=== PATIENT | female | born 1945 | race Caucasian/White ===

== ENCOUNTER 2019-09-08 21:44 | Emergency (ER) | payer BC, MEDICARE, OTHER ==
[~2019-09-08] VITALS: Ht 167.6 cm; Wt 65.8 kg
--- NOTE | 2019-09-08 22:32 | NUR ---
BP 159/79MMHG Patient discharged to home in stable conditon. Written and verbal after care instructions given. Patient verbalizes understanding of instructions. AMBULATORY W/ STABLE GAIT ALL BELONGINGS W/ PT
[2019-09-08 22:36] VITALS: BP 159/79
== END 2019-09-08 22:36 | disposition home or self-care (01) ==
LOC: ER 21:48
DX: I10 Essential (primary) hypertension (principal); Z79.899 Other long term (current) drug therapy; Z96.642 Presence of left artificial hip joint
CPT/HCPCS: A4663

== ENCOUNTER 2021-07-07 09:25 | Emergency (ER) | payer BC ==
[~2021-07-07] VITALS: Ht 167.6 cm; Wt 63.5 kg
[~2021-07-07 09:25] MED LIST: AMLO5TAB4 PO; LISI40TA13 PO; PROP60TA18 PO
[2021-07-07 09:39] LABS: *BILIRUBIN,URIN NEGATIVE (NEGATIVE); *BLOOD, URINE NEGATIVE (NEGATIVE); *CLARITY,URINE CLEAR (CLEAR); *COLOR,URINE YELLOW (YELLOW); *KETONES,URINE NEGATIVE (NEGATIVE); *UROBILINOGEN,URINE 0.2 E.U./dl (NORMAL); LEUKOCYTE ESTERASE ,URINE NEGATIVE (NEGATIVE); NITRITE, URINE NEGATIVE (NEGATIVE); UGLUCOSE NEGATIVE (NEGATIVE)
[2021-07-07 10:21] LABS: HEMATOCRIT 35.6 % (31.2-41.9); MEAN CORPUSCULAR HEMOGLOBIN 32.3 uug (24.7-32.8); MEAN CORPUSCULAR VOLUME 95.2 fL (75.5-95.3); PLATELET COUNT (AUTO) 209 K/uL (179-408)
[2021-07-07 10:27] LABS: CARBON DIOXIDE 27 mmol/L (21-32); CHLORIDE 98 mmol/L (98-107); CREATININE 1.7 mg/dL (0.6-1.3); GLUCOSE 110 mg/dL (74-106); POTASSIUM 4.8 mmol/L (3.5-5.1); UREA NITROGEN, BLOOD 27 mg/dL (7-18)
--- NOTE | 2021-07-07 10:51 | NUR ---
Gave pt d/c instructions, pt verbalized understanding.
== END 2021-07-07 10:52 | disposition home or self-care (01) ==
LOC: ER 09:25
DX: R39.15 Urgency of urination (principal); Z96.642 Presence of left artificial hip joint; Z96.652 Presence of left artificial knee joint; Z79.899 Other long term (current) drug therapy; R03.0 Elevated blood-pressure reading, without diagnosis of hypertension
CPT/HCPCS: 36415; 85025; 87086; A4663

== ENCOUNTER 2022-10-12 23:31 | Emergency (ER) | payer BC ==
[~2022-10-12] VITALS: Ht 167.6 cm; Wt 63.5 kg
--- NOTE | 2022-10-12 23:40 | NUR ---
Dr. Mcgee at bedside for MSE.
--- NOTE | 2022-10-12 23:57 | NUR ---
Xray at bedside.
[2022-10-13] LABS: HEMATOCRIT 35.9 % (31.2-41.9); MEAN CORPUSCULAR HEMOGLOBIN 31.4 uug (24.7-32.8); MEAN CORPUSCULAR VOLUME 94.3 fL (75.5-95.3); PLATELET COUNT (AUTO) 175 K/uL (179-408)
[2022-10-13] MEDS ORDERED: AZIT250T PO (00:11)
[2022-10-13] MEDS ORDERED: ALBU8.5H8 IH (00:11)
[2022-10-13 00:14] LABS: CREATININE 1.1 mg/dL (0.6-1.3)
[2022-10-13 00:19] LABS: BILIRUBIN,TOTAL 0.3 mg/dL (0.2-1.0); TOTAL PROTEIN, SERUM 6.7 g/dL (6.4-8.2)
[2022-10-13 00:59] VITALS: BP 158/80
--- NOTE | 2022-10-13 00:59 | NUR ---
Patient discharged to home in stable condition. Written and verbal after care instructions given. Patient verbalizes understanding of instructions. Stressed follow up or return to ER for worsening s/s. Patient out of ER with steady gait, no acute signs of distress, VSS, all belongings taken, provided with copies of lab results.
[2022-10-13 02:15] LABS: BAND % (MANUAL) 1 % (0-10); EOSINOPHILS % (MANUAL) 4 % (0-8); LYMPHOCYTES % (MANUAL) 24 % (20-40); MONOCYTES % (MANUAL) 7 % (2-10); NEUTROPHILS % (MANUAL) 64 % (42-75)
== END 2022-10-13 00:59 | disposition home or self-care (01) ==
LOC: ER 23:31
DX: J20.9 Acute bronchitis, unspecified (principal); J02.9 Acute pharyngitis, unspecified; Z20.822 Contact with and (suspected) exposure to COVID-19; Z98.82 Breast implant status; Z96.642 Presence of left artificial hip joint; Z96.652 Presence of left artificial knee joint
CPT/HCPCS: 36415; 70030-TC; 71045; 85025; A4663